=== PATIENT | male | born 1990 | race Hispanic/Latino ===

== ENCOUNTER 2018-09-22 01:35 | Emergency (ER) | payer OTHER, SELFPAY ==
--- NOTE | 2018-09-22 02:01 | EDPHYS ---
Physician Documentation [facility] Name: Arnulfo Mcneill Age: 27 yrs Sex: Male : 1990 Arrival Date: 09/22/2018 Time: 01:38 Bed 6 Private MD: ED Physician Trever De Jesus HPI: 09/22 01:56 This 27 yrs old Male presents to ER via Ambulatory with complaints of gs Nausea/Vomiting/Diarrhea. 01:56 The patient presents to the emergency department with nausea, vomiting, diarrhea. gs Onset: The symptoms/episode began/occurred yesterday. Possible causes: unknown. Associated signs and symptoms: Pertinent negatives: abdominal pain, dysuria, fever, GI bleeding. Severity of symptoms: At their worst the symptoms were moderate in the emergency department the symptoms have resolved. The patient has experienced similar episodes in the past, a few times. Historical: - Allergies: 01:52 No Known Allergies; jd3 - Home Meds: 01:52 None [Active]; jd3 - PMHx: 01:52 None; jd3 - PSHx: 01:52 left elbow; jd3 - Immunization history:: Adult Immunizations. - Social history:: Smoking status: Patient/guardian denies using tobacco. - Ebola Screening: : Patient negative for fever greater than or equal to 101.5 degrees Fahrenheit, and additional compatible Ebola Virus Disease symptoms. ROS: 01:56 All other systems are negative. gs Exam: 01:56 Head/Face: Normocephalic, atraumatic. Eyes: Pupils equal round and reactive to light, gs extra-ocular motions intact. Lids and lashes normal. Conjunctiva and sclera are non-icteric and not injected. Cornea within normal limits. Periorbital areas with no swelling, redness, or edema. ENT: Nares patent. No nasal discharge, no septal abnormalities noted. Tympanic membranes are normal and external auditory canals are clear. Oropharynx with no redness, swelling, or masses, exudates, or evidence of obstruction, uvula midline. Mucous membranes moist. Neck: Trachea midline, no thyromegaly or masses palpated, and no cervical lymphadenopathy. Supple, full range of motion without nuchal rigidity, or vertebral point tenderness. No Meningismus. Chest/axilla: Normal chest wall appearance and motion. Nontender with no deformity. No lesions are appreciated. Cardiovascular: Regular rate and rhythm with a normal S1 and S2. No gallops, murmurs, or rubs. Normal PMI, no JVD. No pulse deficits. Respiratory: Lungs have equal breath sounds bilaterally, clear to auscultation and percussion. No rales, rhonchi or wheezes noted. No increased work of breathing, no retractions or nasal flaring. Abdomen/GI: Soft, non-tender, with normal bowel sounds. No distension or tympany. No guarding or rebound. No evidence of tenderness throughout. Back: No spinal tenderness. No costovertebral tenderness. Full range of motion. Skin: Warm, dry with normal turgor. Normal color with no rashes, no lesions, and no evidence of cellulitis. MS/ Extremity: Pulses equal, no cyanosis. Neurovascular intact. Full, normal range of motion. Neuro: Awake and alert, GCS 15, oriented to person, place, time, and situation. Cranial nerves II-XII grossly intact. Motor strength 5/5 in all extremities. Sensory grossly intact. Cerebellar exam normal. Normal gait. 01:56 Constitutional: The patient appears alert, awake, well hydrated. Vital Signs: 01:52 BP 131 / 79; Pulse 75; Resp 16 S; Temp 98.6(O); Pulse Ox 96% on R/A; Weight 108.86 kg j (R); Height 5 ft. 7 in. (170.18 cm) (R); Pain 1/10; 01:52 Body Mass Index 37.59 (108.86 kg, 170.18 cm) jd3 MDM: 01:54 Patient medically screened. 01:56 Differential diagnosis: viral gastroenteritis, gastroenteritis. Data reviewed: vital signs, nurses notes. Response to treatment: the patient's symptoms have resolved after treatment, the patient is now symptom free, patient is well hydrated. and as a result, I will discharge patient. Administered Medications: No medications were administered Disposition: 09/22/18 01:59 Discharged to Home. Impression: Encounter for screening, unspecified. - Condition is Stable. - Medication Reconciliation Form, Thank You Letter, Antibiotic Education, Prescription Opioid Use form. Signatures: Trever De Jesus MD MD Nacho Rice RN RN [facility] Ama Vazquez cc3 Corrections: (The following items were deleted from the chart) 02:08 01:59 09/22/2018 01:59 Discharged to Home. Impression: Encounter for screening, cc3 unspecified. Condition is Stable. Forms are Medication Reconciliation Form, Thank You Letter, Antibiotic Education, Prescription Opioid Use. gs
--- NOTE | 2018-09-22 02:01 | ER ---
Nurse's Notes [facility] Name: Arnulfo Mcneill Age: 27 yrs Sex: Male : 1990 Arrival Date: 09/22/2018 Time: 01:38 Bed 6 Private MD: Diagnosis: Encounter for screening, unspecified Presentation: 09/22 01:50 Presenting complaint: Patient states: "I am mainly here for a work note. I was throwing jd3 up and having diarrhea earlier and I had to miss work tonight. IT started yesterday morning. I took Tylenol earlier and it seemed to help.". Transition of care: patient was not received from another setting of care. Onset of symptoms was September 21, 2018. Risk Assessment: Do you want to hurt yourself or someone else? Patient reports no desire to harm self or others. Initial Sepsis Screen: Does the patient meet any 2 criteria? No. Patient's initial sepsis screen is negative. Does the patient have a suspected source of infection? No. Patient's initial sepsis screen is negative. Care prior to arrival: None. 01:50 Method Of Arrival: Ambulatory jd3 01:50 Acuity: ELIER 5 jd3 Triage Assessment: 01:45 General: Appears in no apparent distress. comfortable, Behavior is calm, cooperative, cc3 appropriate for age. Pain: Denies pain. GI: Reports diarrhea, nausea, vomiting. Historical: - Allergies: 01:52 No Known Allergies; jd3 - Home Meds: 01:52 None [Active]; jd3 - PMHx: 01:52 None; jd3 - PSHx: 01:52 left elbow; jd3 - Immunization history:: Adult Immunizations. - Social history:: Smoking status: Patient/guardian denies using tobacco. - Ebola Screening: : Patient negative for fever greater than or equal to 101.5 degrees Fahrenheit, and additional compatible Ebola Virus Disease symptoms. Screenin:45 Abuse screen: Denies threats or abuse. Denies injuries from another. Nutritional cc3 screening: No deficits noted. Tuberculosis screening: No symptoms or risk factors identified. Fall Risk Ambulatory Aid- None/Bed Rest/Nurse Assist (0 pts). Gait- Normal/Bed Rest/Wheelchair (0 pts) Mental Status- Oriented to own ability (0 pts). Assessment: 01:45 General: Appears in no apparent distress. comfortable, Behavior is calm, cooperative, cc3 appropriate for age. Pain: Denies pain. Neuro: Level of Consciousness is awake, alert, obeys commands, Oriented to person, place, time, situation, Appropriate for age. Cardiovascular: Denies chest pain, Capillary refill < 3 seconds Patient's skin is warm and dry. Respiratory: Airway is patent Respiratory effort is even, unlabored, Respiratory pattern is regular, symmetrical. GI: : No signs and/or symptoms were reported regarding the genitourinary system. EENT: No signs and/or symptoms were reported regarding the EENT system. Derm: Skin is intact, is healthy with good turgor, Skin is pink, warm \\T\\ dry. normal. Musculoskeletal: Circulation, motion, and sensation intact. Range of motion: intact in all extremities. 02:00 Reassessment: Patient appears in no apparent distress at this time. Patient and/or cc3 family updated on plan of care and expected duration. Pain level reassessed. Patient is alert, oriented x 3, equal unlabored respirations, skin warm/dry/pink. Dr. De Jesus discharged the patient home, no prescription given. No IV cannula in situ. Patient left ER vitally stable, ambulatory and left without signing his discharge papers. No valuables left in the patient's room. Patient denies pain at this time. Patient states symptoms have improved. Vital Signs: 01:52 BP 131 / 79; Pulse 75; Resp 16 S; Temp 98.6(O); Pulse Ox 96% on R/A; Weight 108.86 kg jd3 (R); Height 5 ft. 7 in. (170.18 cm) (R); Pain 02/17; 01:52 Body Mass Index 37.59 (108.86 kg, 170.18 cm) jd3 ED Course: 01:38 Patient arrived in ED. cl3 01:44 Trever De Jesus MD is Attending Physician. gs 01:45 Patient has correct armband on for positive identification. Bed in low position. Call cc3 light in reach. Side rails up X 1. Pulse ox on. NIBP on. 01:52 Triage completed. jd3 01:54 Arm band placed on. jd3 02:00 No provider procedures requiring assistance completed. Patient did not have IV access cc3 during this emergency room visit. Administered Medications: No medications were administered Outcome: 01:59 Discharge ordered by . ney 02:00 Discharged to home ambulatory. cc3 02:00 Condition: stable 02:00 Discharge instructions given to patient, Instructed on discharge instructions, follow up and referral plans. Demonstrated understanding of instructions, follow-up care. 02:08 Patient left the ED. cc3 Signatures: Trever De Jesus MD MD gs Davies, Jonathon, RN RN jd3 Ama Vazquez3 Ebonie Cottrell cl3 Corrections: (The following items were deleted from the chart) 01:54 01:52 BP 2 / ???; jd3 jd3
== END 2018-09-22 02:08 | disposition home or self-care (01) ==
LOC: ER 01:35
DX: Z13.9 Encounter for screening, unspecified (principal); R11.2 Nausea with vomiting, unspecified; R19.7 Diarrhea, unspecified
CPT/HCPCS: 99283

== ENCOUNTER 2019-12-18 14:22 | Emergency (ER) | payer SELFPAY ==
--- NOTE | 2019-12-18 16:12 | ER ---
Nurse's Notes [facility] Name: Arnulfo Mcneill Age: 29 yrs Sex: Male : 1990 Arrival Date: 12/18/2019 Time: 14:25 Bed 14 Private MD: Diagnosis: Otitis media, unspecified, right ear;Acute pharyngitis Presentation: 12/17 14:38 Chief complaint: Patient states: Sore throat since Wednesday. Denies fever. Coronavirus ca1 screen: Client denies travel out of the [place] in the last 14 days. sore throat, Client presents with at least one sign or symptom that may indicate coronavirus-19. Standard/surgical mask placed on the client. Provider contacted for isolation considerations. The client denies any previous COVID testing. Ebola Screen: Patient negative for fever greater than or equal to 101.5 degrees Fahrenheit, and additional compatible Ebola Virus Disease symptoms Patient denies exposure to infectious person. Patient denies travel to an Ebola-affected area in the 21 days before illness onset. No symptoms or risks identified at this time. Initial Sepsis Screen: Does the patient meet any 2 criteria? No. Patient's initial sepsis screen is negative. Does the patient have a suspected source of infection? No. Patient's initial sepsis screen is negative. Risk Assessment: Do you want to hurt yourself or someone else? Patient reports no desire to harm self or others. Onset of symptoms was December 18, 2019. 14:38 Method Of Arrival: Ambulatory ca1 14:38 Acuity: ELIER 4 ca1 Historical: - Allergies: 14:41 No Known Allergies; ca1 - Home Meds: 14:41 None [Active]; ca1 - PMHx: 14:41 None; ca1 - PSHx: 14:41 None; ca1 - Immunization history:: Adult Immunizations up to date, Flu vaccine is not up to date. - Social history:: Smoking status: Patient denies any tobacco usage or history of. Screenin:34 Abuse screen: Denies threats or abuse. Nutritional screening: No deficits noted. tw2 Tuberculosis screening: No symptoms or risk factors identified. Fall Risk None identified. Assessment: 14:45 General: Appears in no apparent distress. obese, well groomed. Pain: Complains of pain tw2 in uvula, left aspect of posterior pharynx and right aspect of posterior pharynx. Neuro: Level of Consciousness is awake, alert, obeys commands, Oriented to person, place, time, situation. Cardiovascular: Patient's skin is warm and dry. Respiratory: Airway is patent Respiratory effort is even, unlabored, Respiratory pattern is regular, symmetrical, Breath sounds are clear bilaterally. GI: No signs and/or symptoms were reported involving the gastrointestinal system. : No signs and/or symptoms were reported regarding the genitourinary system. EENT: Throat is reddened Reports pain in uvula, left aspect of posterior pharynx and right aspect of posterior pharynx. Derm: No signs and/or symptoms reported regarding the dermatologic system. Musculoskeletal: Range of motion: intact in all extremities. 15:08 Reassessment: provider at bedside at this time. tw2 16:22 Reassessment: Patient appears in no apparent distress at this time. No changes from tw2 previously documented assessment. Patient and/or family updated on plan of care and expected duration. Pain level reassessed. Patient is alert, oriented x 3, equal unlabored respirations, skin warm/dry/pink. Vital Signs: 14:38 BP 145 / 98; Pulse 84; Resp 16 S; Temp 97.6(TE); Pulse Ox 100% on R/A; Weight 113.4 kg ca1 (R); Height 5 ft. 7 in. (170.18 cm) (R); Pain 3/10; 15:34 BP 109 / 67; Pulse 76; Resp 17; Pulse Ox 99% on R/A; tw2 16:22 BP 120 / 59; Pulse 63; Resp 17; Pulse Ox 96% on R/A; tw2 14:38 Body Mass Index 39.16 (113.40 kg, 170.18 cm) ca1 ED Course: 14:25 Patient arrived in ED. as 14:40 Triage completed. ca1 14:41 Arm band placed on right wrist. ca1 14:45 Bed in low position. Call light in reach. Pulse ox on. NIBP on. tw2 14:47 Parmjit Oro PA is PHCP. cp 14:47 Erlin Cardenas MD is Attending Physician. cp 14:53 Analy Osuna RN is Primary Nurse. tw2 15:11 COVID-19 Sent. tw2 15:11 Flu Sent. tw2 15:11 Strep Sent. tw2 16:23 No provider procedures requiring assistance completed. Patient did not have IV access tw2 during this emergency room visit. Administered Medications: No medications were administered Outcome: 16:10 Discharge ordered by . cp 16:23 Discharged to home ambulatory. tw2 16:23 Condition: stable 16:23 Discharge instructions given to patient, Instructed on discharge instructions, follow up and referral plans. medication usage, Demonstrated understanding of instructions, follow-up care, medications, Prescriptions given X 1. 16:23 Patient left the ED. tw2 Addendum: 12/21/2019 12:25 Addendum: COVID-19 Result: Negative result given to RN to notify pt. Contacted by: Yessenia Cottrell. Notified pt of negative COVID 19 swab results. Pt advised that even with a negative test result they should remain in isolation until symptom free for 3 days without medication. Pt also advised to return to the ED for worsening symptoms. Signatures: Shiloh Cottrell, ANDREA RN Nadia Mccoy Corey, PA PA cp Wise, Tara, RN RN tw2 Alie Guevara RN RN ca1
--- NOTE | 2019-12-18 16:12 | EDPHYS ---
Physician Documentation [facility] Name: Arnulfo Mcneill Age: 29 yrs Sex: Male : 1990 Arrival Date: 12/18/2019 Time: 14:25 Bed 14 Private MD: ED Physician Erlin Cardenas HPI: 12/17 15:10 This 29 yrs old Male presents to ER via Ambulatory with complaints of Sore cp Throat. 15:10 The patient presents with sore throat. The patient describes throat pain as constant. cp Onset: The symptoms/episode began/occurred 2 day(s) ago. 15:10 Severity of symptoms: in the emergency department the symptoms are unchanged, despite cp home interventions. 15:10 Associated signs and symptoms: Pertinent negatives cough, dysphagia, fever, headache. cp Historical: - Allergies: 14:41 No Known Allergies; ca1 - Home Meds: 14:41 None [Active]; ca1 - PMHx: 14:41 None; ca1 - PSHx: 14:41 None; ca1 - Immunization history:: Adult Immunizations up to date, Flu vaccine is not up to date. - Social history:: Smoking status: Patient denies any tobacco usage or history of. ROS: 15:15 Constitutional: Negative for body aches, chills, fever, poor PO intake. cp 15:15 Respiratory: Negative for cough, shortness of breath, wheezing. cp 15:15 ENT: Positive for ear pain, sore throat. cp 15:15 Eyes: Negative for injury, pain, redness, and discharge. cp 15:15 Abdomen/GI: Negative for abdominal pain. 15:15 All other systems are negative. Exam: 15:20 Constitutional: The patient appears in no acute distress, alert, awake, non-toxic, well cp developed, well nourished. 15:20 Head/Face: Normocephalic, atraumatic. cp 15:20 Eyes: Periorbital structures: appear normal, Conjunctiva: normal, no exudate, no injection, Lids and lashes: appear normal, bilaterally. 15:20 ENT: External ear(s): are unremarkable, Ear canal(s): are normal, clear, TM's: erythema, that is mild, on the right, Nose: is normal, Mouth: Lips: moist, Oral mucosa: moist, Posterior pharynx: Airway: no evidence of obstruction, patent, Tonsils: with erythema, no enlargement, no exudate, erythema, that is moderate, exudate, is not appreciated. 15:20 Neck: ROM/movement: is normal, is supple, no meningismus, Lymph nodes: lymphadenopathy is appreciated, anterior cervical nodes. 15:20 Chest/axilla: Inspection: normal. 15:20 Cardiovascular: Rate: normal. 15:20 Respiratory: the patient does not display signs of respiratory distress, Respirations: normal, no use of accessory muscles, no retractions, labored breathing, is not present. Vital Signs: 14:38 BP 145 / 98; Pulse 84; Resp 16 S; Temp 97.6(TE); Pulse Ox 100% on R/A; Weight 113.4 kg ca1 (R); Height 5 ft. 7 in. (170.18 cm) (R); Pain 3/10; 15:34 BP 109 / 67; Pulse 76; Resp 17; Pulse Ox 99% on R/A; tw2 16:22 BP 120 / 59; Pulse 63; Resp 17; Pulse Ox 96% on R/A; tw2 14:38 Body Mass Index 39.16 (113.40 kg, 170.18 cm) ca1 MDM: 14:51 Patient medically screened. cp 15:00 Differential diagnosis: group A strep tonsillitis, laryngitis, mononucleosis, cp pharyngitis, retropharyngeal abcess. 16:10 Data reviewed: vital signs, nurses notes, lab test result(s), and as a result, I will cp discharge patient. 16:10 Counseling: I had a detailed discussion with the patient and/or guardian regarding: the cp historical points, exam findings, and any diagnostic results supporting the discharge/admit diagnosis, lab results, to return to the emergency department if symptoms worsen or persist or if there are any questions or concerns that arise at home. 12/17 14:27 Order name: Strep snw 12/17 14:27 Order name: Flu snw 12/17 14:27 Order name: COVID-19 snw 12/17 16:00 Order name: Throat Culture EDMS Administered Medications: No medications were administered Disposition: 12/18 06:52 Co-signature as Attending Physician, Erlin Cardenas MD I agree with the assessment and kdr plan of care. Disposition: 12/18/19 16:10 Discharged to Home. Impression: Otitis media, unspecified, right ear, Acute pharyngitis. - Condition is Stable. - Discharge Instructions: Otitis Media, Adult, Pharyngitis. - Prescriptions for Amoxicillin 875 mg Oral Tablet - take 1 tablet by ORAL route every 12 hours for 10 days; 20 tablet. - Medication Reconciliation Form, Thank You Letter, Antibiotic Education, Prescription Opioid Use, Work release form form. - Follow up: Private Physician; When: 2 - 3 days; Reason: Worsening of condition. - Problem is new. - Symptoms have improved. Signatures: Dispatcher [employer] EDMS Erlin Cardenas MD MD [facility] Parmjit Oro PA PA cp Analy Osuna RN RN tw2 Alie Guevara RN RN [facility] Corrections: (The following items were deleted from the chart) 12/17 16:23 16:10 12/18/2019 16:10 Discharged to Home. Impression: Otitis media, unspecified, right tw2 ear; Acute pharyngitis. Condition is Stable. Forms are Work release form, Medication Reconciliation Form, Thank You Letter, Antibiotic Education, Prescription Opioid Use. Follow up: Private Physician; When: 2 - 3 days; Reason: Worsening of condition. Problem is new. Symptoms have improved. cp
[2019-12-18 19:45] VITALS: TEMP 97.6
[2019-12-18 19:56] VITALS: BP 120/59; O2SAT 96
== END 2019-12-18 16:23 | disposition home or self-care (01) ==
LOC: ER 14:22
DX: H66.91 Otitis media, unspecified, right ear (principal); Z20.828 Contact with and (suspected) exposure to other viral communicable diseases
CPT/HCPCS: 87070; 87081; 87804; 99283; U0002

== ENCOUNTER 2020-06-21 09:14 | Emergency (ER) | payer SELFPAY ==
--- OUTSIDE RECORDS SUMMARY | 2020-06-21 09:17 | XMS REPORT | Continuity of Care Document ---
:1990 Author Organization [facility] t Address [address] [place] [address] Care Team Providers Name Role Phone Lab, Giovany Pob I Attending Clinician Unavailable Problems This patient has no known problems. Allergies, Adverse Reactions, Alerts This patient has no known allergies or adverse reactions. Medications This patient has no known medications. Procedures This patient has no known procedures. Encounters Start End Encounter Admission Attending Care Care Encounter Source Date/Time Date/Time Type Type Clinicians Facility Department ID 2020-06-19 2020-06-19 Laboratory Lab, [facility] [id number] 11:15:45 11:35:45 Only Fam Pob I [facility] [id number] [place] [id number] [facility] [phone] [address] Results This patient has no known results.
--- NOTE | 2020-06-21 10:27 | RAD REPORT ---
EXAM DESCRIPTION: RAD - Chest Single View - 06/21/2020 10:13 am CLINICAL HISTORY: Cough;Chest pain;Congestion Chest pain. COMPARISON: No comparisons FINDINGS: Portable technique limits examination quality. The lungs are grossly clear. The heart is normal in size. No displaced fractures. IMPRESSION: No acute intrathoracic process suspected.
[2020-06-21] MEDS ORDERED: AZITHROMYCIN IV 500 MG in NA CHLORIDE 0.9% 250 ML IVPB ONE (10:30)
[2020-06-21 11:06] LABS: Absolute Lymphocytes (CBC) 1.7 K/uL (0.7-4.9); Basophils % 0.4 % (0-1.3); Hematocrit 43.5 % (39.6-49.0); Lymphocytes % 27.8 % (15.3-44.8); MPV 7.6 fL (7.6-11.3); RBC Red Blood Cell Count 5.09 M/uL (4.33-5.43)
[2020-06-21] MEDS ORDERED: IPRATROPIUM BROM 0.5MG/2.5ML ONE (11:12)
[2020-06-21] MEDS ORDERED: LEVALBUTEROL 1.25 MG/3 ML NEB ONE (11:12)
[2020-06-21] MEDS ORDERED: predniSONE 20 MG TAB ONE (11:12)
[2020-06-21] MEDS ORDERED: METHYLPREDNISOLONE 125 MG INJ ONE (11:12)
[2020-06-21 11:19] LABS: ALT/SGPT 83 U/L (12-78); AST/SGOT 30 U/L (15-37); Albumin 3.8 g/dL (3.4-5.0); Alkaline Phosphatase 134 U/L (45-117); BUN Blood Urea Nitrogen 9 mg/dL (7-18); Bicarbonate 30 mmol/L (21-32); Bilirubin Direct < 0.1 mg/dL (0-0.2); Bilirubin Total 0.3 mg/dL (0.2-1.0); Glucose Level 103 mg/dL (74-106); Lipase 90 U/L (73-393); Magnesium 2.2 mg/dL (1.8-2.4); Potassium 3.7 mmol/L (3.5-5.1); Protein, Total 8.2 g/dL (6.4-8.2); Sodium Level 138 mmol/L (136-145); Troponin (Emerg Dept Use Only) < 0.02 ng/mL (0.0-0.045)
[2020-06-21 11:24] LABS: NT PRO-BNP < 5 pg/mL (<125)
--- NOTE | 2020-06-21 12:00 | RAD REPORT ---
EXAM DESCRIPTION: CT - Chest For Pe Angio - 06/21/2020 11:45 am CLINICAL HISTORY: Chest pain. Cough;Chest pain COMPARISON: No comparisons TECHNIQUE: CT angiogram of the pulmonary arteries was performed with MIP. All CT scans are performed using dose optimization technique as appropriate and may include automated exposure control or mA/KV adjustment according to patient size. FINDINGS: No evidence of pulmonary thromboembolism. No acute aortic finding demonstrated. The lungs are clear. No significant pericardial or pleural fluid. No concerning bony finding. IMPRESSION: No evidence of pulmonary thromboembolism. No acute lung findings.
[2020-06-21 12:36] LABS: SARS-COV-2 RT PCR NEGATIVE (NEGATIVE)
--- NOTE | 2020-06-21 13:31 | ER ---
Nurse's Notes [facility] Name: Arnulfo Mcneill Age: 29 yrs Sex: Male : 1990 Arrival Date: 06/21/2020 Time: 09:15 Bed 2 Private MD: Diagnosis: Dyspnea;Cough;Bronchitis, not specified as acute or chronic;Hypoxemia;Obesity, unspecified Presentation: 06/21 09:22 Chief complaint: Patient states: "I have been sick for 2 weeks, and now it feels like jd3 it is getting hard to breath. I had a COVID test and it came back negative.". Coronavirus screen: cough unrelated to allergies, difficulty breathing, Client presents with at least one sign or symptom that may indicate coronavirus-19. Standard/surgical mask placed on the client. Provider contacted for isolation considerations. Ebola Screen: Patient negative for fever greater than or equal to 101.5 degrees Fahrenheit, and additional compatible Ebola Virus Disease symptoms. Initial Sepsis Screen: Does the patient meet any 2 criteria? No. Patient's initial sepsis screen is negative. Does the patient have a suspected source of infection? No. Patient's initial sepsis screen is negative. Risk Assessment: Do you want to hurt yourself or someone else? Patient reports no desire to harm self or others. Onset of symptoms was June 14, 2020. 09:22 Method Of Arrival: Ambulatory j 09:22 Acuity: ELIER 4 jd3 Historical: - Allergies: 09:23 No Known Allergies; jd3 - Home Meds: 09:23 None [Active]; jd3 - PMHx: 09:23 None; jd3 - PSHx: 09:23 None; jd3 - Immunization history:: Adult Immunizations up to date. - Social history:: Smoking status: Patient denies any tobacco usage or history of. - Family history:: not pertinent. Screenin:46 Abuse screen: Denies threats or abuse. Denies injuries from another. Nutritional jl7 screening: No deficits noted. Tuberculosis screening: No symptoms or risk factors identified. Fall Risk None identified. Assessment: 09:46 General: Appears in no apparent distress. uncomfortable, Behavior is calm, cooperative, jl7 appropriate for age. Pain: Complains of pain in mid-sternal area Pain does not radiate. Pain currently is 3 out of 10 on a pain scale. at worst was 8 out of 10 on a pain scale. Quality of pain is described as pressure, "Sore" Pain began x 2 weeks Is intermittent. Neuro: Level of Consciousness is awake, alert, obeys commands, Oriented to person, place, time, situation. Cardiovascular: Heart tones present Patient's skin is warm and dry. Pulses are palpable in right radial artery and left radial artery Rhythm is regular. Respiratory: Reports cough that is dry, persistent since x 2 weeks Airway is patent Respiratory effort is even, unlabored, Respiratory pattern is regular, symmetrical, Breath sounds are clear bilaterally. GI: Patient currently denies diarrhea, nausea, vomiting. Derm: Skin is pink, warm \\T\\ dry. 11:03 Reassessment: Patient appears in no apparent distress at this time. No changes from 7 previously documented assessment. Patient and/or family updated on plan of care and expected duration. Pain level reassessed. Patient is alert, oriented x 3, equal unlabored respirations, skin warm/dry/pink. 12:00 Reassessment: Patient appears in no apparent distress at this time. No changes from jl7 previously documented assessment. Patient and/or family updated on plan of care and expected duration. Pain level reassessed. Patient is alert, oriented x 3, equal unlabored respirations, skin warm/dry/pink. 12:56 Reassessment: Pt laying in bed awaiting dispo, no signs of distress noted. jl7 13:25 Reassessment: Dr. Mays at bedside discussing results and POC. 7 Vital Signs: 09:23 BP 130 / 79; Pulse 97; Resp 17 S; Temp 98.5(TE); Pulse Ox 98% on R/A; Weight 122.47 kg jd3 (R); Height 5 ft. 7 in. (170.18 cm) (R); Pain 7/10; 10:21 BP 128 / 92; Pulse 85; Resp 21; Pulse Ox 93% ; jl7 11:03 BP 138 / 91; Pulse 85; Resp 19 S; Pulse Ox 100% on Nebulizer Mask; jl7 12:11 BP 129 / 76; Pulse 90; Resp 18; Pulse Ox 92% ; jl7 13:00 BP 128 / 80; Pulse 86; Resp 15; Pulse Ox 94% ; jl7 09:23 Body Mass Index 42.29 (122.47 kg, 170.18 cm) [facility] ED Course: 09:15 Patient arrived in ED. am2 09:23 Triage completed. jd3 09:24 Arm band placed on. jd3 09:25 Parmjit Mays MD is Attending Physician. rory 09:31 Marlon Christopher, ANDREA is Primary Nurse. jl7 09:46 Patient has correct armband on for positive identification. Bed in low position. Call jl light in reach. Side rails up X 1. Pulse ox on. NIBP on. 10:13 XRAY Chest (1 view) In Process Unspecified. EDMS 10:39 Troponin (emerg Dept Use Only) Sent. 5 10:39 NT PRO-BNP Sent. 5 10:39 Magnesium Sent. 5 10:39 LFT's Sent. [facility] 10:40 CBC with Diff Sent. 5 10:40 Basic Metabolic Panel Sent. [facility] 10:40 Lipase Sent. 5 10:40 Initial lab(s) drawn, by ED staff, sent to lab. EKG done, by ED staff, reviewed by pauline Mays MD COVID swab sent to lab. Flu and/or RSV swab sent to lab. Inserted saline lock: 20 gauge antecubital area, using aseptic technique. Blood collected. 10:41 Warm blanket given. Pillow given. gambling monitor on. 5 11:45 CT Chest For PE Angio In Process Unspecified. EDMS 13:00 No provider procedures requiring assistance completed. jl7 13:30 Brett Garcia MD is Referral Physician. rory 13:50 IV discontinued, intact, bleeding controlled, No redness/swelling at site. Pressure jl7 dressing applied. Administered Medications: 10:47 Drug: NS 0.9% 500 ml Route: IV; Rate: bolus; Site: right antecubital; ap3 11:37 Follow up: Response: No adverse reaction; IV Status: Completed infusion; IV Intake: jl7 500ml 10:47 Drug: Rocephin (cefTRIAXone) 1 grams Route: IV; Rate: per protocol; Site: right ap3 antecubital; 10:50 Follow up: Response: No adverse reaction; IV Status: Completed infusion jl7 11:03 Drug: AtroVENT (ipratropium) Aerosol 0.5 mg Route: Inhalation; jl7 11:37 Follow up: Response: No adverse reaction jl7 11:04 Drug: SOLU-Medrol (methylPrednisoLONE) 125 mg Route: IVP; Site: right antecubital; jl7 11:37 Follow up: Response: No adverse reaction jl7 11:04 Drug: predniSONE 40 mg Route: PO; jl7 11:37 Follow up: Response: No adverse reaction jl7 11:04 Drug: Xopenex (levalbuterol) 2.5 mg Route: Inhalation; jl7 11:37 Follow up: Response: No adverse reaction jl7 11:36 Drug: Zithromax (azithromycin) 500 mg Route: IVPB; Infused Over: 1 hrs; Site: right jl7 antecubital; 13:10 Follow up: IV Status: Completed infusion ap3 11:37 Drug: NS 0.9% 1000 ml Route: IV; Rate: 125 ml/hr; Site: right antecubital; jl7 13:30 Follow up: Response: No adverse reaction; IV Status: Completed infusion jl7 Intake: 11:37 IV: 500ml; Total: 500ml. jl7 Outcome: 13:30 Discharge ordered by . rory 13:50 Discharged to home ambulatory. [facility] 13:50 Condition: stable 13:50 Discharge instructions given to patient, Instructed on discharge instructions, follow up and referral plans. medication usage, Demonstrated understanding of instructions, follow-up care, medications, Prescriptions given X 4. 13:50 Patient left the ED. jl7 Signatures: Dispatcher [employer] EDMS Parmjit Mays MD MD cha Martinez, Maria [facility] Marlon Christopher RN RN jl7 Katerine Dixon Jonathon, RN RN jd3 Katerine Mcdaniel RN RN ap3 Corrections: (The following items were deleted from the chart) 09:23 09:22 Coronavirus screen: At this time, the client does not indicate any symptoms jd3 associated with coronavirus-19. jd3 09:25 09:22 Acuity: ELIER 3 jd3 jd3 11:44 10:40 CORONAVIRUS+MR.LAB.BRZ drawn and sent. [facility] EDMS 11:45 10:40 Influenza Screen (A \\T\\ B)+BA.LAB.BRZ drawn and sent. [facility] EDMS 13:50 13:00 IV discontinued, intact, bleeding controlled, No redness/swelling at site. jl7 Pressure dressing applied, jl7
--- NOTE | 2020-06-21 13:31 | EDPHYS ---
Physician Documentation [facility] Name: Arnulfo Mcneill Age: 29 yrs Sex: Male : 1990 Arrival Date: 06/21/2020 Time: 09:15 Bed 2 Private MD: ED Physician Parmjit Mays HPI: 06/21 09:52 This 29 yrs old Male presents to ER via Ambulatory with complaints of Cough, rory Shortness Of Breath, Chest Pain, Chest Congestion. 09:52 The patient or guardian reports airway noise, cough, difficulty breathing. Onset: The rory symptoms/episode began/occurred 5 day(s) ago. Severity of symptoms: At their worst the symptoms were mild, in the emergency department the symptoms are unchanged. Modifying factors: The symptoms are alleviated by nothing, the symptoms are aggravated by nothing. Associated signs and symptoms: The patient has no apparent associated signs or symptoms. The patient has not experienced similar symptoms in the past. Historical: - Allergies: 09:23 No Known Allergies; jd3 - Home Meds: 09:23 None [Active]; jd3 - PMHx: 09:23 None; jd3 - PSHx: 09:23 None; jd3 - Immunization history:: Adult Immunizations up to date. - Social history:: Smoking status: Patient denies any tobacco usage or history of. - Family history:: not pertinent. ROS: 09:52 Constitutional: Negative for fever, chills, and weight loss, Eyes: Negative for injury, rory pain, redness, and discharge, ENT: Negative for injury, pain, and discharge, Neck: Negative for injury, pain, and swelling, Abdomen/GI: Negative for abdominal pain, nausea, vomiting, diarrhea, and constipation, Back: Negative for injury and pain, : Negative for injury, bleeding, discharge, and swelling, MS/Extremity: Negative for injury and deformity, Skin: Negative for injury, rash, and discoloration, Neuro: Negative for headache, weakness, numbness, tingling, and seizure, Psych: Negative for depression, anxiety, suicide ideation, homicidal ideation, and hallucinations, Allergy/Immunology: Negative for hives, rash, and allergies, Endocrine: Negative for neck swelling, polydipsia, polyuria, polyphagia, and marked weight changes, Hematologic/Lymphatic: Negative for swollen nodes, abnormal bleeding, and unusual bruising. 09:52 Cardiovascular: Positive for chest pain, with cough. 09:52 Respiratory: Positive for cough, "sounds productive". Exam: 09:52 Constitutional: This is a well developed, well nourished patient who is awake, alert, rory and in no acute distress. Head/Face: Normocephalic, atraumatic. Eyes: Pupils equal round and reactive to light, extra-ocular motions intact. Lids and lashes normal. Conjunctiva and sclera are non-icteric and not injected. Cornea within normal limits. Periorbital areas with no swelling, redness, or edema. ENT: Nares patent. No nasal discharge, no septal abnormalities noted. Tympanic membranes are normal and external auditory canals are clear. Oropharynx with no redness, swelling, or masses, exudates, or evidence of obstruction, uvula midline. Mucous membranes moist. Neck: Trachea midline, no thyromegaly or masses palpated, and no cervical lymphadenopathy. Supple, full range of motion without nuchal rigidity, or vertebral point tenderness. No Meningismus. Chest/axilla: Normal chest wall appearance and motion. Nontender with no deformity. No lesions are appreciated. Cardiovascular: Regular rate and rhythm with a normal S1 and S2. No gallops, murmurs, or rubs. Normal PMI, no JVD. No pulse deficits. Abdomen/GI: Soft, non-tender, with normal bowel sounds. No distension or tympany. No guarding or rebound. No evidence of tenderness throughout. Back: No spinal tenderness. No costovertebral tenderness. Full range of motion. Male : Normal genitalia with no discharge or lesions. Skin: Warm, dry with normal turgor. Normal color with no rashes, no lesions, and no evidence of cellulitis. MS/ Extremity: Pulses equal, no cyanosis. Neurovascular intact. Full, normal range of motion. Neuro: Awake and alert, GCS 15, oriented to person, place, time, and situation. Cranial nerves II-XII grossly intact. Motor strength 5/5 in all extremities. Sensory grossly intact. Cerebellar exam normal. Normal gait. Psych: Awake, alert, with orientation to person, place and time. Behavior, mood, and affect are within normal limits. 09:52 Respiratory: the patient does not display signs of respiratory distress, Respirations: normal, Breath sounds: bronchial sounds, that are mild, are scattered, decreased breath sounds, that are mild, are scattered, rhonchi, that are mild, stridor, is not appreciated, + upper airway congestion. wheezing: expiratory 10:45 ECG was reviewed by the Attending Physician. [facility] Vital Signs: 09:23 BP 130 / 79; Pulse 97; Resp 17 S; Temp 98.5(TE); Pulse Ox 98% on R/A; Weight 122.47 kg jd3 (R); Height 5 ft. 7 in. (170.18 cm) (R); Pain 7/10; 10:21 BP 128 / 92; Pulse 85; Resp 21; Pulse Ox 93% ; jl7 11:03 BP 138 / 91; Pulse 85; Resp 19 S; Pulse Ox 100% on Nebulizer Mask; jl7 12:11 BP 129 / 76; Pulse 90; Resp 18; Pulse Ox 92% ; jl7 13:00 BP 128 / 80; Pulse 86; Resp 15; Pulse Ox 94% ; jl7 09:23 Body Mass Index 42.29 (122.47 kg, 170.18 cm) jd3 MDM: 09:25 Patient medically screened. [facility] 09:54 Differential Diagnosis: Obstructed Airway Bronchitis Influenza Upper Respiratory rory Infection Pharyngitis Asthma Exacerbation Viral Syndrome Pneumonia. Data reviewed: vital signs, nurses notes, lab test result(s), EKG, radiologic studies, CT scan, plain films. Data interpreted: media monitor: rate is 97 beats/min, rhythm is regular. Test interpretation: by ED physician or midlevel provider: ECG, plain radiologic studies. Counseling: I had a detailed discussion with the patient and/or guardian regarding: the historical points, exam findings, and any diagnostic results supporting the discharge/admit diagnosis, lab results. 06/21 09:51 Order name: Basic Metabolic Panel; Complete Time: 11:54 [facility] 06/21 09:51 Order name: CBC with Diff; Complete Time: 11:54 [facility] 06/21 09:51 Order name: LFT's; Complete Time: 11:54 [facility] 06/21 09:51 Order name: Magnesium; Complete Time: 11:54 [facility] 06/21 09:51 Order name: NT PRO-BNP; Complete Time: 11:54 [facility] 06/21 09:51 Order name: Troponin (emerg Dept Use Only); Complete Time: 11:54 [facility] 06/21 09:51 Order name: XRAY Chest (1 view); Complete Time: 10:35 [facility] 06/21 09:51 Order name: Lipase; Complete Time: 11:54 [facility] 06/21 09:51 Order name: CT Chest For PE Angio; Complete Time: 13:30 [facility] 06/21 09:52 Order name: Blood Culture Adult (2) [facility] 06/21 12:36 Order name: COVID-19/FLU A+B; Complete Time: 13:30 [facility] 06/21 09:51 Order name: EKG; Complete Time: 09:51 [facility] 06/21 09:51 Order name: Cardiac monitoring; Complete Time: 10:39 [facility] 06/21 09:51 Order name: EKG - Nurse/Tech; Complete Time: 10:39 [facility] 06/21 09:51 Order name: IV Saline Lock; Complete Time: 10:39 [facility] 06/21 09:51 Order name: Labs collected and sent; Complete Time: 10:39 [facility] 06/21 09:51 Order name: O2 Per Protocol; Complete Time: 10:21 [facility] 06/21 09:51 Order name: O2 Sat Monitoring; Complete Time: 10:21 [facility] EC:45 Rate is 88 beats/min. Rhythm is regular. QRS [place] is Normal. ME interval is normal. QRS rory interval is normal. QT interval is normal. No Q waves. T waves are Normal. No ST changes noted. Clinical impression: NSR w/ Non-specific ST/T Changes and No evidence of ischemia. Interpreted by me. Reviewed by me. Administered Medications: 10:47 Drug: NS 0.9% 500 ml Route: IV; Rate: bolus; Site: right antecubital; ap3 11:37 Follow up: Response: No adverse reaction; IV Status: Completed infusion; IV Intake: jl7 500ml 10:47 Drug: Rocephin (cefTRIAXone) 1 grams Route: IV; Rate: per protocol; Site: right ap3 antecubital; 10:50 Follow up: Response: No adverse reaction; IV Status: Completed infusion jl7 11:03 Drug: AtroVENT (ipratropium) Aerosol 0.5 mg Route: Inhalation; jl7 11:37 Follow up: Response: No adverse reaction jl7 11:04 Drug: SOLU-Medrol (methylPrednisoLONE) 125 mg Route: IVP; Site: right antecubital; jl7 11:37 Follow up: Response: No adverse reaction jl7 11:04 Drug: predniSONE 40 mg Route: PO; jl7 11:37 Follow up: Response: No adverse reaction jl7 11:04 Drug: Xopenex (levalbuterol) 2.5 mg Route: Inhalation; jl7 11:37 Follow up: Response: No adverse reaction 7 11:36 Drug: Zithromax (azithromycin) 500 mg Route: IVPB; Infused Over: 1 hrs; Site: right jl7 antecubital; 13:10 Follow up: IV Status: Completed infusion ap3 11:37 Drug: NS 0.9% 1000 ml Route: IV; Rate: 125 ml/hr; Site: right antecubital; 7 13:30 Follow up: Response: No adverse reaction; IV Status: Completed infusion jl7 Disposition: 06/21/20 13:30 Discharged to Home. Impression: Dyspnea, Cough, Bronchitis, not specified as acute or chronic, Hypoxemia, Obesity, unspecified. - Condition is Stable. - Discharge Instructions: Acute Bronchitis, Adult, How to Use an Inhaler, Obesity, Adult, Shortness of Breath, Upper Respiratory Infection, Adult, Cool Mist Vaporizer, Shortness of Breath, [id number], Acute Bronchitis, [id number]. - Prescriptions for Albuterol Sulfate 90 mcg/actuation - inhale 1-2 puff by INHALATION route every 4-6 hours; 1 Inhaler. Prednisone 20 mg Oral Tablet - take 2 tablet by ORAL route once daily for 5 days; 10 tablet. Zithromax 500 mg Oral Tablet - take 1 tablet by ORAL route once daily for 4 days; 4 tablet. Pepcid 20 mg Oral Tablet - take 1 tablet by ORAL route every 12 hours for 10 days; 20 tablet. - Medication Reconciliation Form, Thank You Letter, Antibiotic Education, Prescription Opioid Use form. - Follow up: Private Physician; When: 2 - 3 days; Reason: Recheck today's complaints, Continuance of care, Re-evaluation by your physician. Follow up: Brett Garcia; When: 2 - 3 days; Reason: Recheck today's complaints, Re-evaluation by your physician. - Problem is new. - Symptoms have improved. Signatures: Dispatcher [employer] EDParmjit Barrientos MD MD cha Leal, Jahala, RN RN jl7 Nacho Rice, RN RN jd3 Katerine Mcdaniel RN RN ap3 Corrections: (The following items were deleted from the chart) 11:44 09:51 CORONAVIRUS+MR.LAB.BRZ ordered. [facility] 11:45 09:51 Influenza Screen (A \\T\\ B)+BA.LAB.BRZ ordered. [facility] 13:50 13:30 06/21/2020 13:30 Discharged to Home. Impression: Dyspnea; Cough; Bronchitis, not jl7 specified as acute or chronic; Hypoxemia; Obesity, unspecified. Condition is Stable. Discharge Instructions: Acute Bronchitis, Adult, How to Use an Inhaler, Shortness of Breath, Upper Respiratory Infection, Adult, Cool Mist Vaporizer, Shortness of Breath, [id number], Acute Bronchitis, [id number]. Prescriptions for Albuterol Sulfate 90 mcg/actuation - inhale 1-2 puff by INHALATION route every 4-6 hours; 1 Inhaler, Prednisone 20 mg Oral Tablet - take 2 tablet by ORAL route once daily for 5 days; 10 tablet, Zithromax 500 mg Oral Tablet - take 1 tablet by ORAL route once daily for 4 days; 4 tablet, Pepcid 20 mg Oral Tablet - take 1 tablet by ORAL route every 12 hours for 10 days; 20 tablet. and Forms are Medication Reconciliation Form, Thank You Letter, Antibiotic Education, Prescription Opioid Use. Follow up: Private Physician; When: 2 - 3 days; Reason: Recheck today's complaints, Continuance of care, Re-evaluation by your physician. Follow up: Brett Garcia; When: 2 - 3 days; Reason: Recheck today's complaints, Re-evaluation by your physician. Problem is new. Symptoms have improved. rory
[2020-06-21 13:56] VITALS: TEMP 98.5
[2020-06-21 14:03] VITALS: BP 128/80; O2SAT 94
== END 2020-06-21 13:50 | disposition home or self-care (01) ==
LOC: ER 09:14
DX: J40 Bronchitis, not specified as acute or chronic (principal); R09.02 Hypoxemia; E66.9 Obesity, unspecified; Z68.41 Body mass index [BMI] 40.0-44.9, adult
CPT/HCPCS: 0240U; 36415; 71045; 71275; 80048; 80076; 83690; 83735; 83880; 84484; 85025; 87040; 93005; 96361; 96365; 96366; 96375; 99285; J0456; J2930; J7050; J7512; Q9967

== ENCOUNTER 2021-09-07 01:28 | Emergency (ER) | payer SELFPAY ==
--- NOTE | 2021-09-07 02:24 | EDPHYS ---
Physician Documentation [facility] Name: Arnulfo Mcneill Age: 30 yrs Sex: Male : 1990 Arrival Date: 09/07/2021 Time: 01:32 Bed 7 Private MD: ED Physician Erlin Cardenas HPI: 09/07 02:27 This 30 yrs old Male presents to ER via Ambulatory with complaints of kdr Toothache. 02:27 The patient presents with pain. The problem is located in the upper right third molar kdr and upper right second molar. Onset: The symptoms/episode began/occurred suddenly, 2 day(s) ago. Duration: The symptoms are intermittent, with no pattern. Modifying factors: The symptoms are alleviated by over the counter medications, the symptoms are aggravated by nothing. Associated signs and symptoms: The patient has no apparent associated signs or symptoms. Severity of symptoms: At their worst the symptoms were mild, moderate, just prior to arrival, in the emergency department the symptoms are unchanged. The patient has not experienced similar symptoms in the past. The patient has not recently seen a physician. Historical: - Allergies: 01:51 No Known Allergies; jb4 - Home Meds: 01:51 None [Active]; jb4 - PMHx: 01:51 None; jb4 - PSHx: 01:51 None; jb4 - Immunization history:: Adult Immunizations up to date. - Social history:: Smoking status: Patient denies any tobacco usage or history of. Patient/guardian denies using alcohol, street drugs. ROS: 02:27 Constitutional: Negative for fever, chills, and weight loss, Eyes: Negative for injury, kdr pain, redness, and discharge, Neck: Negative for injury, pain, and swelling, Cardiovascular: Negative for chest pain, palpitations, and edema, Respiratory: Negative for shortness of breath, cough, wheezing, and pleuritic chest pain, Abdomen/GI: Negative for abdominal pain, nausea, vomiting, diarrhea, and constipation, Back: Negative for injury and pain, : Negative for injury, bleeding, discharge, and swelling, MS/Extremity: Negative for injury and deformity, Skin: Negative for injury, rash, and discoloration, Neuro: Negative for headache, weakness, numbness, tingling, and seizure activity. Psych: Negative for depression, anxiety, suicide ideation, homicidal ideation, and hallucinations, Allergy/Immunology: Negative for hives, rash, and allergies, Endocrine: Negative for neck swelling, polydipsia, polyuria, polyphagia, and marked weight changes, Hematologic/Lymphatic: Negative for swollen nodes, abnormal bleeding, and unusual bruising. 02:27 ENT: Positive for dental pain, of the upper right third molar and upper right second molar. Exam: 02:27 Constitutional: This is a well developed, well nourished patient who is awake, alert, kdr and in no acute distress. ENT: Nares patent. No nasal discharge, no septal abnormalities noted. Tympanic membranes are normal and external auditory canals are clear. Oropharynx with no redness, swelling, or masses, exudates, or evidence of obstruction, uvula midline. Mucous membranes moist. 02:27 ENT: Dental exam: pain, that is mild, specifically in the upper right third molar (#1) and upper right second molar (#2). Vital Signs: 01:49 BP 101 / 81; Pulse 69; Resp 16; Temp 98.2(O); Pulse Ox 98% on R/A; Weight 120.2 kg (R); jb4 Height 5 ft. 7 in. (170.18 cm) (R); Pain 5/10; 01:49 Body Mass Index 41.50 (120.20 kg, 170.18 cm) jb4 MDM: 02:24 Patient medically screened. kdr 02:27 Data reviewed: vital signs, nurses notes. kdr Administered Medications: 02:59 Not Given (Med not available): Amoxicillin 875 mg PO once lp1 03:02 Drug: Augmentin (Amoxicillin-Clavulanate) 875 mg Route: PO; lp1 03:03 Drug: Ibuprofen 800 mg Route: PO; lp1 Disposition Summary: 09/07/21 02:24 Discharge Ordered Location: Home kdr Problem: new kdr Symptoms: have improved kdr Condition: Stable kdr Diagnosis - Dental Pain kdr Followup: kdr - With: Private Physician - When: 2 - 3 days - Reason: If symptoms return, Further diagnostic work-up, Recheck today's complaints, Continuance of care, Re-evaluation by your physician Discharge Instructions: - Discharge Summary Sheet kdr - Dental Pain, [id number] kdr Forms: - Medication Reconciliation Form kdr - Thank You Letter kdr - Antibiotic Education kdr - Prescription Opioid Use kdr Prescriptions: - Amoxicillin 500 mg Oral Capsule - take 1 capsule by ORAL route every 8 hours for 10 days; 30 tablet; Refills: 0, kdr Product Selection Permitted - Tramadol 50 mg Oral Tablet - take 1 tablet by ORAL route every 4-6 hours As needed as needed; 12 tablet; kdr Refills: 0, Product Selection Permitted Signatures: Erlin Cardenas MD MD kdr Pena, Laura, RN RN lp1 Corky Joseph RN RN jb4
--- NOTE | 2021-09-07 02:24 | ER ---
Nurse's Notes [facility] Name: Arnulfo Mcneill Age: 30 yrs Sex: Male : 1990 Arrival Date: 09/07/2021 Time: 01:32 Bed 7 Private MD: Diagnosis: Dental Pain Presentation: 09/07 01:49 Chief complaint: Patient states: I have cavities in my right upper rear teeth and they jb4 are now throbbing causing right sided facial pain and migraines. Coronavirus screen: At this time, the client does not indicate any symptoms associated with coronavirus-19. Ebola Screen: No symptoms or risks identified at this time. Initial Sepsis Screen: Does the patient meet any 2 criteria? No. Patient's initial sepsis screen is negative. Does the patient have a suspected source of infection? No. Patient's initial sepsis screen is negative. Risk Assessment: Do you want to hurt yourself or someone else? Patient reports no desire to harm self or others. Onset of symptoms was September 07, 2021. Transition of care: patient was not received from another setting of care. 01:49 Method Of Arrival: Ambulatory jb4 01:49 Acuity: ELIER 4 jb4 Historical: - Allergies: 01:51 No Known Allergies; jb4 - Home Meds: 01:51 None [Active]; jb4 - PMHx: 01:51 None; jb4 - PSHx: 01:51 None; jb4 - Immunization history:: Adult Immunizations up to date. - Social history:: Smoking status: Patient denies any tobacco usage or history of. Patient/guardian denies using alcohol, street drugs. Screenin:51 Abuse screen: Denies threats or abuse. Nutritional screening: No deficits noted. jb4 Tuberculosis screening: No symptoms or risk factors identified. Fall Risk None identified. Assessment: 01:51 General: Appears in no apparent distress. comfortable, Behavior is calm, cooperative, jb4 appropriate for age. Pain: Complains of pain in upper right third molar, upper right second molar and upper right first molar Pain does not radiate. Pain currently is 5 out of 10 on a pain scale. Neuro: Level of Consciousness is awake, alert, obeys commands, Oriented to person, place, time, situation. Cardiovascular: Patient's skin is warm and dry. Respiratory: Airway is patent Respiratory effort is even, unlabored, Respiratory pattern is regular, symmetrical. EENT: Poor dentition noted. Dental caries noted in upper right first molar (#3) and upper right cuspid (#6). Derm: Skin is intact, Skin is pink, warm \T\ dry. Musculoskeletal: Circulation, motion, and sensation intact. Range of motion: intact in all extremities. 03:00 Reassessment: Patient appears in no apparent distress at this time. Patient and/or jb4 family updated on plan of care and expected duration. Pain level reassessed. Patient is alert, oriented x 3, equal unlabored respirations, skin warm/dry/pink. Vital Signs: 01:49 BP 101 / 81; Pulse 69; Resp 16; Temp 98.2(O); Pulse Ox 98% on R/A; Weight 120.2 kg (R); jb4 Height 5 ft. 7 in. (170.18 cm) (R); Pain 5/10; 01:49 Body Mass Index 41.50 (120.20 kg, 170.18 cm) jb4 ED Course: 01:32 Patient arrived in ED. ja2 01:45 Erlin Cardenas MD is Attending Physician. kdr 01:49 Corky Joseph RN is Primary Nurse. jb4 01:50 Triage completed. jb4 01:51 Arm band placed on right wrist. jb4 01:51 Patient has correct armband on for positive identification. Bed in low position. Call jb4 light in reach. Side rails up X 1. Client placed on continuous cardiac and pulse oximetry monitoring. NIBP monitoring applied. 03:00 No provider procedures requiring assistance completed. Patient did not have IV access jb4 during this emergency room visit. Administered Medications: 02:59 Not Given (Med not available): Amoxicillin 875 mg PO once lp1 03:02 Drug: Augmentin (Amoxicillin-Clavulanate) 875 mg Route: PO; lp1 03:03 Drug: Ibuprofen 800 mg Route: PO; lp1 Medication: 01:51 VIS not applicable for this client. jb4 Outcome: 02:24 Discharge ordered by . kdr 03:00 Discharged to home ambulatory. jb4 03:00 Condition: stable 03:00 Discharge instructions given to patient, Instructed on discharge instructions, follow up and referral plans. medication usage, Demonstrated understanding of instructions, follow-up care, medications, Prescriptions given X 2. 03:12 Patient left the ED. lp1 Signatures: Erlin Cardenas MD MD kdr Pena, Laura, RN RN lp1 Corky Joseph RN RN jb4 Carol Thorne
[2021-09-07] MEDS ORDERED: AMOX/K CLAV 875 MG TAB ONE (02:58)
[2021-09-07] MEDS ORDERED: IBUPROFEN 400 MG TAB ONE (02:59)
[2021-09-07 03:21] VITALS: BP 101/81; TEMP 98.2; O2SAT 98
== END 2021-09-07 03:12 | disposition home or self-care (01) ==
LOC: ER 01:28
DX: K08.89 Other specified disorders of teeth and supporting structures (principal)
CPT/HCPCS: 99283